=== PATIENT | male | born 1950 | race Caucasian/White ===

== ENCOUNTER 2016-08-30 15:24 | Outpatient (RCR) | payer OTHER | END 2016-09-13 08:00 | disposition home or self-care (01) | LOC: PT 15:24 | DX: S32.452 Displaced transverse fracture of left acetabulum (principal); S32.432D Displaced fracture of anterior column [iliopubic] of left acetabulum, subsequent encounter for fracture with routine healing; X58.XXXD Exposure to other specified factors, subsequent encounter ==

== ENCOUNTER 2016-11-02 13:16 | Outpatient (RCR) | payer OTHER ==
[2016-12-08] MEDS ORDERED: COUMADIN 77.5 MG/TAB PO (10:20)
[2016-12-08] MEDS ORDERED: LIPITOR 40MG TA40 MG PO (10:20)
[2016-12-08] MEDS ORDERED: LASIX40 M1 PO (10:21)
[2016-12-08] MEDS ORDERED: ULTRAM50 M1 PO (10:22)
[2016-12-08] MEDS ORDERED: CORDARONE200 MG/TAB PO (10:23)
[2016-12-08] MEDS ORDERED: ASPIRIN E.C. 8181 MG PO (10:23)
== END 2017-01-31 | disposition home or self-care (01) ==
LOC: CARDREHAB
DX: Z48.812 Encounter for surgical aftercare following surgery on the circulatory system (principal); Z95.2 Presence of prosthetic heart valve

== ENCOUNTER → 2016-12-08 | Outpatient (CLI) | payer OTHER ==
[~2016-12-08] MED LIST: ASPIRIN E.C. 8181 MG PO; CORDARONE200 MG/TAB PO; COUMADIN 77.5 MG/TAB PO; LASIX40 M1 PO; LIPITOR 40MG TA40 MG PO; ULTRAM50 M1 PO
[2016-12-08 10:25] VITALS: BP 133/88
== END ==
LOC: AMSURD 09:58
DX: I48.0 Paroxysmal atrial fibrillation (principal)

== ENCOUNTER → 2018-01-07 | Day surgery (SDC) | payer OTHER ==
[2016-12-08 10:25] VITALS: BP 133/88
== END ==
LOC: MSO 07:49
DX: Z12.11 Encounter for screening for malignant neoplasm of colon (principal); D12.3 Benign neoplasm of transverse colon; Z86.010 Personal history of colon polyps; Z90.49 Acquired absence of other specified parts of digestive tract; Z95.2 Presence of prosthetic heart valve; Z98.0 Intestinal bypass and anastomosis status; I48.91 Unspecified atrial fibrillation; Z79.82 Long term (current) use of aspirin; Z87.891 Personal history of nicotine dependence
CPT/HCPCS: 00811; J2704; J7120

== ENCOUNTER → 2018-01-08 | Outpatient (CLI) | payer OTHER ==
[2016-12-08 10:25] VITALS: BP 133/88
== END ==
LOC: RAD 09:47
DX: Z87.891 Personal history of nicotine dependence (principal); Z13.6 Encounter for screening for cardiovascular disorders

== ENCOUNTER → 2018-04-18 | Outpatient (CLI) | payer OTHER ==
[~2018-04-18] VITALS: Ht 172.7 cm; Wt 80.9 kg
[2018-04-18 14:54] VITALS: BP 147/88
== END ==
LOC: AMSURD 14:42
DX: I25.10 Atherosclerotic heart disease of native coronary artery without angina pectoris (principal); I10 Essential (primary) hypertension

== ENCOUNTER → 2020-01-13 | Outpatient (CLI) | payer BC ==
[2018-04-18 14:54] VITALS: BP 147/88
== END ==
LOC: RAD 09:47
DX: N50.89 Other specified disorders of the male genital organs (principal); N43.3 Hydrocele, unspecified

== ENCOUNTER → 2024-08-18 | Outpatient (CLI) | payer MEDICARE, BC | LOC: VAS 15:48 | DX: Z95.2 Presence of prosthetic heart valve (principal) ==